=== PATIENT | female | born 2000 | race Caucasian/White ===

== ENCOUNTER 2019-08-16 22:33 | Inpatient (IN) ==
[2019-08-16] MEDS ORDERED: SODIUM CHLORIDE 0.9% 1000ML 1,000 ML IV ONE (23:01)
[2019-08-16] MEDS: SODIUM CHLORIDE 0.9% 1000ML 1,000 ML IV ONE ×2 (23:03→23:29)
[2019-08-16] MEDS ORDERED: ACETAMINOPHEN 500 MG TAB PO STA (23:10)
[2019-08-16 23:15] LABS: Basophils # (auto) 0.05 K/uL (0-0.2); Basophils % (auto) 0.4 %; Eosinophils # (auto) 0.04 K/uL (0-0.5); Eosinophils % (auto) 0.4 %; Hematocrit (blood only) 39.6 % (37-47); Hemoglobin 13.3 g/dL (12.0-16.0); Immature Granulocytes # (auto) 0.01 K/uL (0.00-0.02); Immature Granulocytes % (auto) 0.1 %; Lymphocytes # (auto) 2.51 K/uL (1.2-3.4); Lymphocytes % (auto) 22.6 %; Mean Corpuscular Hemoglobin 27.3 pg (25-34); Mean Corpuscular Hgb Conc 33.6 g/dL (32-36); Mean Corpuscular Volume 81.1 fL (80-100); Mean Platelet Volume 9.6 fL (7.4-10.4); Monocytes # (auto) 0.69 K/uL (0.11-0.59); Monocytes % (auto) 6.2 %; Neutrophils # (auto) 7.82 K/uL (1.4-6.5); Neutrophils % (auto) 70.3 %; Platelet Count 460 K/uL (130-400); RDW Coefficient of Variation 13.7 % (11.5-14.5); RDW Standard Deviation 40.6 fL (36.4-46.3); Red Blood Count 4.88 M/uL (4.2-5.4); White Blood Count 11.12 K/uL (4.8-10.8)
[2019-08-16 23:40] LABS: Base Excess VBG -4.3 mEq/L; HCO3 VBG 20 mmol/L; Oxygen Saturation VBG 77.6 %; PCO2 VBG 34 mmHg (38-50); PO2 VBG 44 mmHg; Potassium 4.6 mmol/L (3.5-5.1); pH VBG 7.38 (7.36-7.41)
[2019-08-16 23:49] LABS: Alanine Aminotransferase 26 U/L (12-78); Albumin Globulin Ratio 0.9 (0.9-2); Albumin Level 3.7 gm/dl (3.4-5.0); Alkaline Phosphatase 195 U/L (45-117); Aspartate Aminotransferase 13 U/L (15-37); BUN Creatinine Ratio 14.4 (10-20); Bilirubin,Total 0.5 mg/dl (0.2-1); Blood Urea Nitrogen 18 mg/dl (7-18); Calcium 9.6 mg/dl (8.5-10.1); Carbon Dioxide 20 mmol/L (21-32); Chloride 96 mmol/L (98-107); Creatinine Clr Calc Pharmacy 83.7 ml/min; Est GFR (African American) 73.9; Est GFR (Non-African American) 63.7; Globulin 4.1 gm/dl (2.5-4.0); Glucose 704 mg/dl (70-99); Magnesium 2.1 mg/dl (1.8-2.4); Phosphorus 3.6 mg/dl (2.5-4.9); Sodium 130 mmol/L (136-145); Total Protein 7.8 gm/dl (6.4-8.2)
[2019-08-17] MEDS ORDERED: CARBOHYDRATES FOR HYPOGLYCEMIA PO PRN (00:01)
[2019-08-17] MEDS ORDERED: DEXTROSE 50% 50 ML SYRINGE IV PRN (00:01)
[2019-08-17] MEDS ORDERED: GLUCAGON FOR INJ 1 MG VIAL SQ PRN (00:01)
[2019-08-17] MEDS ORDERED: GLUCOSE 40% GEL 15 GM TUBE PO PRN (00:01)
[2019-08-17] MEDS ORDERED: GLUCOSE 10 TABS/TUBE PO PRN (00:01)
[2019-08-17] MEDS ORDERED: ED DKA INSULIN DRIP ONE (00:01)
[2019-08-17 00:06] LABS: Pregnancy Test, Serum Negative (Negative)
--- NOTE | 2019-08-17 00:11 | Emergency Department Note ---
Entered by Miranda Diop acting as a scribe for History of Present Illness General Chief complaint: Hyperglycemia Stated complaint: HIGH BLOOD SUGAR, TYPE 1 DIABETES Time Seen by Provider: 08/16/19 22:38 Source: patient History of Present Illness Onset (ago): hour(s) Pain Consistency: + constant Maximum Pain Intensity: 4 Current Pain Intensity: 4 Relieved By: + none Exacerbated By: + none Associated symptoms: + headaches, + nausea/vomiting, + shortness of breath and + other (fatigue and dehydration); no cough Treatments prior to arrival: other (Insulin) The patient is a 18 year old female who presents to the Emergency Room with complaints of hyperglycemia. The patient states that this afternoon, her blood sugar was reading high. She tried injecting additional insulin and changing the pump site, but nothing seemed to help. She complains of slight nausea and shortness of breath. She also complains of headache, fatigue, and dehydration. The patient denies cough, sore throat, and diarrhea. She states that her blood sugar was within normal limits this morning. She notes that she has only been in DKA once when she was diagnosed 20 years ago. Home Medications Home Medications Medication Instructions Recorded Confirmed Type Trulicity 0.75 mg SUBCUT WK 05/14/19 08/16/19 History insulin aspart U-100 [Novolog 0 unit CONTINUOUS SUBCUTANEOUS 05/14/19 08/16/19 History U-100 Insulin aspart] INFUSION CONT dulaglutide [Trulicity] 1.5 mg SUBCUT WK 08/16/19 08/16/19 History spironolactone 25 mg PO DAILY 08/16/19 08/16/19 History Allergies Allergy/AdvReac Type Severity Reaction Status Date / Time cephalexin Allergy Intermediate Hives Verified 08/16/19 23:25 penicillin V Allergy Mild Hives Verified 08/16/19 23:25 Past Med/Surg History Medical History Endometriosis Hidradenitis suppurativa Nausea and vomiting after administration of anesthetic agent Type 1 diabetes IDDM - novolog pump Surgical History History of appendectomy History of cholecystectomy History of laparoscopy lysis of adhesions History of right salpingo-oophorectomy Family History Grandfather (Paternal) FHx: kidney cancer Grandmother (Maternal) FHx: colon cancer Social History Preferred Language: Slovenian Communication Ability: Effective Adobe Architect Required: No Beliefs That Will Affect Care: None Current Living Situation Comment: room-mates Feels Safe at Home: Yes Smoking Status: Never smoker Second Hand Exposure: No ; Hx Alcohol Use: No Hx Substance Use: No Review of Systems See HPI for pertinent positives & negatives. and A total of 10 systems reviewed and were otherwise negative Physical Exam Vital Signs Vital Signs - 24 hr 08/16/19 22:34 08/16/19 23:26 08/16/19 23:32 Temperature 37.2 C Temperature Source Oral Pulse Rate 120 H 93 H Pulse Rate [Finger] 90 Pulse Rhythm Regular Pulse Rhythm [Finger] Regular Pulse Strength [Finger] Normal Respiratory Rate 22 19 20 Respiratory Effort / Characteristics Non-Labored Spontaneous Respiratory Depth Normal Respiratory Pattern Regular Blood Pressure 174/101 H Blood Pressure [Right Arm] 138/79 Blood Pressure Mean 125 Blood Pressure Mean [Right Arm] 98 Blood Pressure Position Sitting Blood Pressure Position [Right Arm] Lying Pulse Oximetry 100 98 98 Oxygen Delivery Method Room Air Room Air Room Air Sepsis Recent Fever Within 48 Hours No Sepsis Action Taken by Nursing No Action Required GENERAL: Awake, alert, fatigued-appearing. HENT: Dry mucus membranes. Normocephalic, atraumatic. EYES: Normal conjunctiva. Sclera non-icteric. NECK: Supple. No nuchal rigidity. RESPIRATORY: Tachypneic. Clear to auscultation. No wheezes. Normal respiratory effort. CARDIAC: Tachycardic rate. Normal rhythm. Extremities warm and well perfused. GI: Soft, non-distended. No tenderness to palpation. No rebound or guarding. No masses. R abdominal insulin pump in place. RECTAL: Deferred. MUSCULOSKELETAL: Atraumatic. Chest examination reveals no tenderness. LOWER EXTREMITIES: Calves are equal size bilaterally and non-tender. No edema NEURO: Normal sensorium. No sensory or motor deficits noted. No facial droop. SKIN: Warm and dry. No rash or jaundice noted. Course Course 2039: Past medical records reviewed. The patient was evaluated in room B02. A complete history and physical exam was performed. 0010: I updated the patient on lab results and discussed staying in the hospital for further treatment. The patient understands and is agreeable to this plan. 0014: I spoke to Dr. Seaman, [facility] hospitalist, who agreed to take over care of the patient. The patient is agreeable and will be evaluated for further treatment. Administered Medications Discontinued Medications Acetaminophen (Tylenol) 1,000 mg PO NOW STA Stop: 08/16/19 23:11 Last Admin: 08/16/19 23:23 Dose: 1,000 mg Documented by: [id number] Sodium Chloride (Nss 1000ml) 1,000 mls @ 999 mls/hr IV .Q1H1M ONE Stop: 08/16/19 23:38 Last Admin: 08/16/19 23:29 Dose: 999 mls/hr Documented by: [id number] Infusion: 08/16/19 23:29 Dose: 999 mls/hr Documented by: [id number] Admin: 08/16/19 23:03 Dose: 999 mls/hr Documented by: [id number] Sodium Chloride (Nss 1000ml) 1,000 mls @ 999 mls/hr IV .Q1H1M ONE Stop: 08/17/19 00:01 Last Admin: 08/16/19 23:31 Dose: 999 mls/hr Documented by: [id number] Critical Care Time Critical Care Time: Yes Total Critical Care Time: 38 I have personally spent 38 minutes of critical care time in the direct management of this patient. This includes bedside care, interpretation of diagnostic studies, and testing, discussion with consultants, patient, and family members, and other required patient management activities. This 38 minutes is in excess of all separately billable procedures. Medical Decision Making Differential Diagnosis Differential includes acute DKA, coronary syndrome, myocardial infarction, CVA, TIA, anemia, infection, pneumonia, UTI, pyelonephritis, poor nutrition, dehydration, electrolyte disturbance,hypoglycemia, as well as others were considered. Medical Records Attestation: I reviewed the patient's medical records. Home Medications Current Medication List: was personally reviewed by me Laboratory Data Attestation: I reviewed the patient's lab results. Result diagrams: 08/16/19 23:00 08/16/19 23:00 Lab Results 08/16/19 08/16/19 08/16/19 Range/Units 22:42 22:43 23:00 WBC (4.8-10.8) K/uL RBC (4.2-5.4) M/uL Hgb (12.0-16.0) g/dL Hct (37-47) % MCV (80-100) fL MCH (25-34) pg MCHC (32-36) g/dL RDW Std Deviation (36.4-46.3) fL RDW Coeff of Ricki (11.5-14.5) % Plt Count (130-400) K/uL MPV (7.4-10.4) fL Immature Gran % (Auto) % Neut % (Auto) % Lymph % (Auto) % [place] % (Auto) % Eos % (Auto) % Baso % (Auto) % Immature Gran # (Auto) (0.00-0.02) K/uL Neut # (Auto) (1.4-6.5) K/uL Lymph # (Auto) (1.2-3.4) K/uL [place] # (Auto) (0.11-0.59) K/uL Eos # (Auto) (0-0.5) K/uL Baso # (Auto) (0-0.2) K/uL VBG pH (7.36-7.41) VBG pCO2 (38-50) mmHg VBG pO2 mmHg VBG HCO3 mmol/L VBG O2 Saturation % VBG Base Excess mEq/L Sodium 130 L (136-145) mmol/L Potassium 4.6 (3.5-5.1) mmol/L Chloride 96 L (98-107) mmol/L Carbon Dioxide 20 L (21-32) mmol/L Anion Gap 14.0 H (3-11) BUN 18 (7-18) mg/dl Creatinine 1.22 H (0.6-1.2) mg/dl Est Cr Clr Drug Dosing 83.7 ml/min Est GFR ( Amer) 73.9 Est GFR (Non-Af Amer) 63.7 BUN/Creatinine Ratio 14.4 (10-20) Glucose 704 H* (70-99) mg/dl POC Glucose > 600 H* > 600 H* (70-99) mg/dl Lactate (0.4-2.0) mmol/L Calcium 9.6 (8.5-10.1) mg/dl Phosphorus 3.6 (2.5-4.9) mg/dl Magnesium 2.1 (1.8-2.4) mg/dl Total Bilirubin 0.5 (0.2-1) mg/dl AST 13 L (15-37) U/L ALT 26 (12-78) U/L Alkaline Phosphatase 195 H (45-117) U/L Total Protein 7.8 (6.4-8.2) gm/dl Albumin 3.7 (3.4-5.0) gm/dl Globulin 4.1 H (2.5-4.0) gm/dl Albumin/Globulin Ratio 0.9 (0.9-2) Beta-Hydroxybutyric Acd 40.49 H (0.2-2.81) mg/dl HCG, Qual (Negative) 08/16/19 08/16/19 08/16/19 Range/Units 23:00 23:00 23:00 WBC 11.12 H (4.8-10.8) K/uL RBC 4.88 (4.2-5.4) M/uL Hgb 13.3 (12.0-16.0) g/dL Hct 39.6 (37-47) % MCV 81.1 (80-100) fL MCH 27.3 (25-34) pg MCHC 33.6 (32-36) g/dL RDW Std Deviation 40.6 (36.4-46.3) fL RDW Coeff of Ricki 13.7 (11.5-14.5) % Plt Count 460 H (130-400) K/uL MPV 9.6 (7.4-10.4) fL Immature Gran % (Auto) 0.1 % Neut % (Auto) 70.3 % Lymph % (Auto) 22.6 % [place] % (Auto) 6.2 % Eos % (Auto) 0.4 % Baso % (Auto) 0.4 % Immature Gran # (Auto) 0.01 (0.00-0.02) K/uL Neut # (Auto) 7.82 H (1.4-6.5) K/uL Lymph # (Auto) 2.51 (1.2-3.4) K/uL [place] # (Auto) 0.69 H (0.11-0.59) K/uL Eos # (Auto) 0.04 (0-0.5) K/uL Baso # (Auto) 0.05 (0-0.2) K/uL VBG pH 7.38 (7.36-7.41) VBG pCO2 34 L (38-50) mmHg VBG pO2 44 mmHg VBG HCO3 20 mmol/L VBG O2 Saturation 77.6 % VBG Base Excess -4.3 mEq/L Sodium (136-145) mmol/L Potassium (3.5-5.1) mmol/L Chloride (98-107) mmol/L Carbon Dioxide (21-32) mmol/L Anion Gap (3-11) BUN (7-18) mg/dl Creatinine (0.6-1.2) mg/dl Est Cr Clr Drug Dosing ml/min Est GFR ( Amer) Est GFR (Non-Af Amer) BUN/Creatinine Ratio (10-20) Glucose (70-99) mg/dl POC Glucose (70-99) mg/dl Lactate 1.6 (0.4-2.0) mmol/L Calcium (8.5-10.1) mg/dl Phosphorus (2.5-4.9) mg/dl Magnesium (1.8-2.4) mg/dl Total Bilirubin (0.2-1) mg/dl AST (15-37) U/L ALT (12-78) U/L Alkaline Phosphatase (45-117) U/L Total Protein (6.4-8.2) gm/dl Albumin (3.4-5.0) gm/dl Globulin (2.5-4.0) gm/dl Albumin/Globulin Ratio (0.9-2) Beta-Hydroxybutyric Acd (0.2-2.81) mg/dl HCG, Qual (Negative) 08/16/19 08/16/19 Range/Units 23:00 23:55 WBC (4.8-10.8) K/uL RBC (4.2-5.4) M/uL Hgb (12.0-16.0) g/dL Hct (37-47) % MCV (80-100) fL MCH (25-34) pg MCHC (32-36) g/dL RDW Std Deviation (36.4-46.3) fL RDW Coeff of Ricki (11.5-14.5) % Plt Count (130-400) K/uL MPV (7.4-10.4) fL Immature Gran % (Auto) % Neut % (Auto) % Lymph % (Auto) % [place] % (Auto) % Eos % (Auto) % Baso % (Auto) % Immature Gran # (Auto) (0.00-0.02) K/uL Neut # (Auto) (1.4-6.5) K/uL Lymph # (Auto) (1.2-3.4) K/uL [place] # (Auto) (0.11-0.59) K/uL Eos # (Auto) (0-0.5) K/uL Baso # (Auto) (0-0.2) K/uL VBG pH (7.36-7.41) VBG pCO2 (38-50) mmHg VBG pO2 mmHg VBG HCO3 mmol/L VBG O2 Saturation % VBG Base Excess mEq/L Sodium (136-145) mmol/L Potassium (3.5-5.1) mmol/L Chloride (98-107) mmol/L Carbon Dioxide (21-32) mmol/L Anion Gap (3-11) BUN (7-18) mg/dl Creatinine (0.6-1.2) mg/dl Est Cr Clr Drug Dosing ml/min Est GFR ( Amer) Est GFR (Non-Af Amer) BUN/Creatinine Ratio (10-20) Glucose (70-99) mg/dl POC Glucose 534 H* (70-99) mg/dl Lactate (0.4-2.0) mmol/L Calcium (8.5-10.1) mg/dl Phosphorus (2.5-4.9) mg/dl Magnesium (1.8-2.4) mg/dl Total Bilirubin (0.2-1) mg/dl AST (15-37) U/L ALT (12-78) U/L Alkaline Phosphatase (45-117) U/L Total Protein (6.4-8.2) gm/dl Albumin (3.4-5.0) gm/dl Globulin (2.5-4.0) gm/dl Albumin/Globulin Ratio (0.9-2) Beta-Hydroxybutyric Acd (0.2-2.81) mg/dl HCG, Qual Negative (Negative) ECG Data Attestation: I personally reviewed and interpreted this ECG as follows: Indication: + other (hyperglycemia) Rate (beats per minute): 77 Rhythm: + sinus with SA ECG Intervals/blocks: + Normal QT-c ECG [place]: + Normal ECG ST segments: no ST depression and no ST elevation ECG Findings: no PVCs Blood Pressure Blood Pressure Findings: Elevated blood pressure Blood Pressure Disposition: further management by hospitalist FLORENCE Narrative Continuous Cardiac Monitoring: An order was placed for continuous cardiac monitoring. The monitor shows a rate of 77 (70s) with sinus rhythm with sinus arrhythmia. Patient is a 18-year-old female with a history of type 1 diabetes presenting to the emergency department today with report of elevated blood sugar. Patient states he feels weak and tired low bit short of breath at this time with a headache. Patient states she is otherwise well until her blood sugar read high this evening/afternoon. Denies flulike symptoms. Denies urinary symptoms. Denies any numbness or tingling distally. States that she tried injecting additional insulin manually, using her insulin pump, changing his pump site without improvement. Patient's tachycardic and tachypneic here with significantly elevated blood sugar. Lactate and VBG ordered as well as basic labs. Fluid bolus initially ordered. High concern this represents DKA. Unsure the exact precipitating event. Doubt meningitis. Does not appear grossly septic. No respiratory symptoms and doubt pneumonia. Benign abdomen otherwise. Not really having gastroenteritis symptoms. Patient without significant acidosis on VBG. Bicarb very minimally depressed. Anion gap of 14 is elevated. Pseudohyponatremia. 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 Glucose is greater than 700. Insulin bolus and drip ordered for her uncontrolled hyperglycemia. She will suspend her own home insulin pump that she has been using basal at 2 units an hour (this has been running while here). Again received IV fluids for signs of dehydration. Patient is anti-initial stage of DKA with opening anion gap, hyperglycemia, dehydration and significant ketoacidosis in her urine at home. Hospitalist contacted. Impression & Plan DKA, type 1, Acute dehydration, Fatigue, Headache Discharge Plan Visit Data Chief Complaint: Hyperglycemia Stated Complaint: HIGH BLOOD SUGAR, TYPE 1 DIABETES ED Provider: Sandro Denton Discharge Problem: DKA, type 1, Acute dehydration, Fatigue, Headache Forms Stand Alone Forms: [employer] Prescriptions Prescriptions: No Action Trulicity 0.75 mg/0.5 mL Pen Injector 0.75 mg SUBCUT WK RF: 0 insulin aspart U-100 [Novolog U-100 Insulin aspart] 100 unit/mL Solution 0 unit continuous subcutaneous infusion CONT RF: 0 spironolactone 25 mg tablet 25 mg PO DAILY RF: 0 Trulicity 1.5 mg/0.5 mL pen injector 1.5 mg SUBCUT WK RF: 0 Discharge Problem: DKA, type 1 Qualifiers: Diabetes mellitus complication detail: without coma Qualified Code(s): E10.10 - Type 1 diabetes mellitus with ketoacidosis without coma Fatigue Qualifiers: Fatigue type: unspecified Qualified Code(s): R53.83 - Other fatigue Headache Qualifiers: Headache type: unspecified Headache chronicity pattern: acute headache Intractability: not intractable Qualified Code(s): R51 - Headache The scribe's documentation has been prepared under my direction and personally reviewed by me in its entirety. I confirm that the note above accurately reflects all work, treatment, procedures, and medical decision making performed by me.
[2019-08-17] MEDS ORDERED: NovoLIN-R BOLUS FROM BAG IV ONE (00:15)
[2019-08-17] MEDS ORDERED: INSULIN REGULAR 250 UNITS in SODIUM CHLORIDE 0.9% 247.5 ML IV SCH (00:15)
[2019-08-17 00:16] LABS: Beta-Hydroxybutyrate 40.49 mg/dl (0.2-2.81)
[2019-08-17] MEDS ORDERED: SODIUM CHLORIDE 0.9% 1000ML 1,000 ML IV SCH (00:30)
[2019-08-17 00:45] LABS: Influenza A virus by PCR Neg for Influ A (Neg); Influenza B virus by PCR Neg for Influ B (Neg)
[2019-08-17 00:58] LABS: Appearance Urine Clear (Clear); Bilirubin Urine Negative (Negative); Blood Urine Negative (Negative); Color Urine Yellow; Glucose Urine UA 3+ (Negative); Ketones Urine 2+ (Negative); Leukocyte Esterase Urine Negative (Negative); Nitrite Urine Negative (Negative); Protein Urine Negative (Negative); Specific Gravity Urine 1.023 (1.000-1.030); Urobilinogen Urine Negative (Negative)
[2019-08-17 01:21] LABS: Troponin I < 0.015 ng/ml (0-0.045)
--- NOTE | 2019-08-17 01:29 | History & Physical Report ---
Date of Service August 17, 2019 Assessment & Plan (1) Hyperglycemic crisis in diabetes mellitus: DM1 (recent outpatient hemoglobin A1c of 8.04 June 2019) Unclear precipitant ? Pump malfunction ARF, AGMA secondary to above Situational hypertension mood disorder, at baseline hiradenitis suppurativa status post surgery, stable disease Patient was to start spironolactone prescription to suppress disease. Medical telemetry given blood pressure elevation TTE if with persistent elevation rule out chronic hypertension, may benefit from maintenance Rx IV insulin Pharmacy glycemic control consult Update hemoglobin A1c Monitor creatinine response to IVF DVT prophylaxis. Lovenox subcu Full code Text document was generated using [employer] voice recognition software. It may contain grammatical or spelling errors. Kindly contact undersigned for clarification of any documentation item in question. History of Present Illness Chief Complaint: High sugars Primary Care Provider: Sona Gillespie MD History obtained from patient and records. Medical history significant for DM1 on insulin pump, mood disorder, hiradenitis suppurativa, ovarian cystadenoma status post surgery. Patient diagnosed to have DM1 at age 20 years old. Only confinement for DKA was at time of diagnosis at [facility]. Home insulin pump initiated last year. Usual BSGs 1 50-2 50s. No recent hypoglycemic episodes as per patient. Yesterday afternoon, blood glucose monitor was not reading sugars. Suspecting severe hypoglycemia, patient tried injecting additional insulin and changing pump site to no avail. No recent change in regimen. Denies dietary indiscretion. No cough, abdominal pain, diarrhea, dysuria symptoms. Patient later noted some nausea, mild achy headache, S OB symptoms. No chest pain. Peeing a lot. At the ER, initial BSG noted to be 700s. IV insulin started at the ER after patient's insulin pump was turned off. 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 Allergies Allergy/AdvReac Type Severity Reaction Status Date / Time cephalexin Allergy Intermediate Hives Verified 08/16/19 23:25 penicillin V Allergy Mild Hives Verified 02/16/20 23:25 Home Medications Home Medications Medication Instructions Recorded Confirmed Type Trulicity 0.75 mg SUBCUT WK 05/14/19 08/16/19 History insulin aspart U-100 [Novolog 0 unit CONTINUOUS SUBCUTANEOUS 05/14/19 08/16/19 History U-100 Insulin aspart] INFUSION CONT dulaglutide [Trulicity] 1.5 mg SUBCUT WK 08/16/19 08/16/19 History spironolactone 25 mg PO DAILY 08/16/19 08/16/19 History Past Med/Surg History Medical History Endometriosis Hidradenitis suppurativa Nausea and vomiting after administration of anesthetic agent Type 1 diabetes IDDM - novolog pump Surgical History History of appendectomy History of cholecystectomy History of laparoscopy lysis of adhesions History of right salpingo-oophorectomy Family History Grandfather (Paternal) FHx: kidney cancer Grandmother (Maternal) FHx: colon cancer Social History Preferred Language: Nepali Communication Ability: Effective Director Safety Council Required: No Beliefs That Will Affect Care: None Current Living Situation: Other Current Living Situation Comment: dormitory Other Information That Helps Us Care for You: No Feels Safe at Home: Yes Smoking Status: Never smoker Second Hand Exposure: No ; Hx Alcohol Use: No Hx Substance Use: No Review of Systems Review of Systems: As per HPI, all 10 systems reviewed, all other ROS negative Physical Exam Physical Exam: GENERAL: Comfortable, pleasant, morbidly obese, no respiratory distress SKIN: Normal color, warm HEENT: Bespectacled, pink palpebral conjunctivae, no ptosis, dry buccal mucosa NECK : Supple, short neck, no tenderness CHEST : CTA, no tenderness HEART : RRR, no obvious murmurs ABDOMEN: Some distention, nontender EXTREMITIES : Minimal LE swelling, no LE tenderness, no other conspicuous deformities noted NEUROLOGIC : Coherent, no facial asymmetry, no other gross focality Results & Data Vital Signs (Past 12 Hours) Vital Signs Temp Pulse Pulse Resp BP BP Pulse Ox 08/17/19 01:06 99 H 20 149/72 H 99 08/16/19 23:32 93 H 20 98 08/16/19 23:26 90 19 138/79 98 08/16/19 22:34 37.2 C 120 H 22 174/101 H 100 Laboratory Results Laboratory Results WBC 11.12 K/uL (4.8-10.8) H 08/16/19 23:00 RBC 4.88 M/uL (4.2-5.4) 08/16/19 23:00 Hgb 13.3 g/dL (12.0-16.0) 08/16/19 23:00 Hct 39.6 % (37-47) 08/16/19 23:00 MCV 81.1 fL (80-100) 08/16/19 23:00 MCH 27.3 pg (25-34) 08/16/19 23:00 MCHC 33.6 g/dL (32-36) 08/16/19 23:00 RDW Std Deviation 40.6 fL (36.4-46.3) 08/16/19 23:00 RDW Coeff of Ricki 13.7 % (11.5-14.5) 08/16/19 23:00 Plt Count 460 K/uL (130-400) H 08/16/19 23:00 MPV 9.6 fL (7.4-10.4) 08/16/19 23:00 Immature Gran % (Auto) 0.1 % 08/16/19 23:00 Neut % (Auto) 70.3 % 08/16/19 23:00 Lymph % (Auto) 22.6 % 08/16/19 23:00 [place] % (Auto) 6.2 % 08/16/19 23:00 Eos % (Auto) 0.4 % 08/16/19 23:00 Baso % (Auto) 0.4 % 08/16/19 23:00 Immature Gran # (Auto) 0.01 K/uL (0.00-0.02) 08/16/19 23:00 Neut # (Auto) 7.82 K/uL (1.4-6.5) H 08/16/19 23:00 Lymph # (Auto) 2.51 K/uL (1.2-3.4) 08/16/19 23:00 [place] # (Auto) 0.69 K/uL (0.11-0.59) H 08/16/19 23:00 Eos # (Auto) 0.04 K/uL (0-0.5) 08/16/19 23:00 Baso # (Auto) 0.05 K/uL (0-0.2) 08/16/19 23:00 VBG pH 7.38 (7.36-7.41) 08/16/19 23:00 VBG pCO2 34 mmHg (38-50) L 08/16/19 23:00 VBG pO2 44 mmHg 08/16/19 23:00 VBG HCO3 20 mmol/L 08/16/19 23:00 VBG O2 Saturation 77.6 % 08/16/19 23:00 VBG Base Excess -4.3 mEq/L 08/16/19 23:00 Sodium 130 mmol/L (136-145) L 08/16/19 23:00 Potassium 4.6 mmol/L (3.5-5.1) 08/16/19 23:00 Chloride 96 mmol/L (98-107) L 08/16/19 23:00 Carbon Dioxide 20 mmol/L (21-32) L 08/16/19 23:00 Anion Gap 14.0 (3-11) H 08/16/19 23:00 BUN 18 mg/dl (7-18) 08/16/19 23:00 Creatinine 1.22 mg/dl (0.6-1.2) H 08/16/19 23:00 Est Cr Clr Drug Dosing 83.7 ml/min 08/16/19 23:00 Est GFR ( Amer) 73.9 08/16/19 23:00 Est GFR (Non-Af Amer) 63.7 08/16/19 23:00 BUN/Creatinine Ratio 14.4 (10-20) 08/16/19 23:00 Glucose 704 mg/dl (70-99) H* 08/16/19 23:00 POC Glucose 466 mg/dl (70-99) H* 08/17/19 00:59 Lactate 1.6 mmol/L (0.4-2.0) 08/16/19 23:00 Calcium 9.6 mg/dl (8.5-10.1) 08/16/19 23:00 Phosphorus 3.6 mg/dl (2.5-4.9) 02/16/20 23:00 Magnesium 2.1 mg/dl (1.8-2.4) 08/16/19 23:00 Total Bilirubin 0.5 mg/dl (0.2-1) 08/16/19 23:00 AST 13 U/L (15-37) L 08/16/19 23:00 ALT 26 U/L (12-78) 08/16/19 23:00 Alkaline Phosphatase 195 U/L (45-117) H 08/16/19 23:00 Troponin I < 0.015 ng/ml (0-0.045) 08/16/19 23:00 Total Protein 7.8 gm/dl (6.4-8.2) 08/16/19 23:00 Albumin 3.7 gm/dl (3.4-5.0) 08/16/19 23:00 Globulin 4.1 gm/dl (2.5-4.0) H 08/16/19 23:00 Albumin/Globulin Ratio 0.9 (0.9-2) 08/16/19 23:00 Beta-Hydroxybutyric Acd 40.49 mg/dl (0.2-2.81) H 08/16/19 23:00 Procalcitonin 0.09 ng/ml (0-0.5) 08/16/19 23:00 HCG, Qual Negative (Negative) 08/16/19 23:00 Urine Color Yellow 08/17/19 00:30 Urine Appearance Clear (Clear) 08/17/19 00:30 Urine pH 5.0 (4.5-7.5) 08/17/19 00:30 Ur Specific [place] 1.023 (1.000-1.030) 08/17/19 00:30 Urine Protein Negative (Negative) 08/17/19 00:30 Urine Glucose (UA) 3+ (Negative) H 08/17/19 00:30 Urine Ketones 2+ (Negative) H 08/17/19 00:30 Urine Blood Negative (Negative) 08/17/19 00:30 Urine Nitrite Negative (Negative) 08/17/19 00:30 Urine Bilirubin Negative (Negative) 08/17/19 00:30 Urine Urobilinogen Negative (Negative) 08/17/19 00:30 Ur Leukocyte Esterase Negative (Negative) 08/17/19 00:30 Influenza Type A (PCR) Neg for Influ A (Neg) 08/16/19 23:53 Influenza Type B (PCR) Neg for Influ B (Neg) 08/16/19 23:53 Diagnostic Findings Chest x-ray as per my interpretation no infiltrate, no congestion EKG as per my interpretation : Rate 80, NSR, normal axis, T wave abnormality septal leads
[2019-08-17] MEDS ORDERED: PHARMACY GLYCEMIC MGMT CONSULT STA (01:34)
[2019-08-17 01:45] LABS: D Dimer 210 ug/L FEU (0-500); Partial Thromboplastin Ratio 0.9; Partial Thromboplastin Time 24.6 Seconds (21.0-31.0)
[2019-08-17] MEDS ORDERED: PHARMACY GLYCEMIC MGMT CONSULT PRN (01:46)
[2019-08-17] MEDS ORDERED: ACETAMINOPHEN 325 MG TAB PO PRN (02:40)
[2019-08-17] MEDS ORDERED: PROMETHAZINE HCL 12.5 MG in SODIUM CHLORIDE 0.9% 50 ML IV PRN (02:40)
[2019-08-17] MEDS ORDERED: TRAMADOL HCL 50 MG TABLET PO PRN (02:40)
[2019-08-17 03:17] LABS: Basophils # (auto) 0.06 K/uL (0-0.2); Basophils % (auto) 0.6 %; Eosinophils # (auto) 0.05 K/uL (0-0.5); Eosinophils % (auto) 0.5 %; Hematocrit (blood only) 38.4 % (37-47); Hemoglobin 12.9 g/dL (12.0-16.0); Immature Granulocytes # (auto) 0.03 K/uL (0.00-0.02); Immature Granulocytes % (auto) 0.3 %; Lymphocytes % (auto) 32.4 %; Mean Corpuscular Hemoglobin 26.9 pg (25-34); Mean Corpuscular Hgb Conc 33.6 g/dL (32-36); Mean Platelet Volume 9.3 fL (7.4-10.4); Monocytes # (auto) 0.71 K/uL (0.11-0.59); Monocytes % (auto) 7.2 %; Neutrophils # (auto) 5.82 K/uL (1.4-6.5); Platelet Count 437 K/uL (130-400); RDW Coefficient of Variation 13.5 % (11.5-14.5); White Blood Count 9.87 K/uL (4.8-10.8)
[2019-08-17 03:39] LABS: BUN Creatinine Ratio 21.6 (10-20); Calcium 9.5 mg/dl (8.5-10.1); Creatinine Clr Calc Pharmacy 113.6 ml/min; Est GFR (African American) 106.7; Potassium 3.9 mmol/L (3.5-5.1)
[2019-08-17] MEDS ORDERED: LACTATED RINGER'S 1,000 ML IV ONE (03:56)
[2019-08-17 05:55] LABS: Estimated Average Glucose 212 mg/dl
--- NOTE | 2019-08-17 07:19 | XRay Report ---
XR chest 1V portable HISTORY: Shortness of breath. COMPARISON: None. FINDINGS: The lungs are clear. Cardiac silhouette is normal in size. No pleural effusions. No pneumot horax. IMPRESSION: No acute process. ACT 112: Negative or not required by law. Electronically signed by: Alexi Nichols M.D. 08/17/2019 7:17 AM
[2019-08-17] MEDS ORDERED: INSULIN ASPART 100 UNITS/ML 3 ML PEN SC SCH (07:30)
[2019-08-17] MEDS ORDERED: ENOXAPARIN INJ 40 MG/0.4 ML SYR SQ SCH (09:00)
[2019-08-17] MEDS ORDERED: INSULIN ASPART 100 UNITS/ML VIAL SC PRN (10:45)
[2019-08-17] MEDS: NovoLOG INSULIN PUMP SCH ×3 (11:04→17:05)
--- NOTE | 2019-08-17 15:04 | Pharmacy Report ---
Pharmacy Glycemic Short Note 2 - Date of Service August 17, 2019 - Glycemic Short BSG Results (Last 24 hours): 08/16/19 08/16/19 08/16/19 22:42 22:43 23:00 Glucose 704 H* POC Glucose > 600 H* > 600 H* 08/16/19 08/17/19 08/17/19 23:55 00:59 01:38 Glucose POC Glucose 534 H* 466 H* 376 H* 08/17/19 08/17/19 08/17/19 02:20 02:48 03:08 Glucose 289 H POC Glucose 331 H* 303 H* 08/17/19 08/17/19 08/17/19 03:53 04:54 05:30 Glucose POC Glucose 236 H 161 H 140 H 08/17/19 08/17/19 08/17/19 06:01 07:09 08:02 Glucose POC Glucose 155 H 125 H 118 H 08/17/19 08/17/19 08/17/19 08:35 09:30 10:33 Glucose POC Glucose 177 H 189 H 137 H OUTPATIENT ANTIDIABETIC REGIMEN: * Novolog insulin pump * Basal: 2 units/hr * Carb ratio: 1 unit per 5gm CHO consumed * Correction factor: 1 unit per 25mg/dL above 130 * Trulicity * HbA1c: 9.0% (08/16/19) ASSESSMENT: * Ms Schaffer is a Type 1 diabetic female who presented to the hospital with hyperglycemia that she was unable to control with her pump at home. * Suspect that there was a pump malfunction. * Patient was corrected with an IV insulin infusion overnight and was transitio amanda back to her insulin pump before lunch today. * The pt moved insulin pump to a new site prior to admission. * BSGs appear to be reasonable since resuming her pump. Nursing will continue to monitor. PLAN FOR INPATIENT GLYCEMIC CONTROL: * Resume insulin pump at previous outpt settings. PLAN FOR DISCHARGE: * Suspect that patient may continue current regimen on discharge. * A1c is not at goal, so would recommend close f/u with outpt providers to work toward optimizing A1c.
--- NOTE | 2019-08-17 17:49 | Hospitalist Progress Note ---
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 DVT prophylaxis On Lovenox subcu CODE STATUS Full code Admission and Anticipated Discharge Date Admission Date: August 17, 2019 Subjective Pt was seen and examined. Lying in bed with no distress. Pt said that she feels fine She said that it seems like her insulin pump was not working properly She said that her sugar was control between 80 to 140 in the past few days, then suddenly her meter was unable to read the BS Pt denies any chest pain, palpitation, dizziness and SOB Physical Exam Physical Exam: General- No acute distress Head- atraumatic Eyes- PERRL, EOMI, ENT- oropharynx clear Neck- supple, no JVD Lungs- clear to auscultation Heart- regular rhythm; no murmur Abdomen- normal bowel sounds, soft, nontender Extremities- no calf tenderness Neuro- alert, oriented x 3; PERRL, EOMI; no facial palsy; no dysarthria Skin- warm & dry Results & Data ([facility]) Vital Signs (Past 12 Hours) Vital Signs Temp Pulse Pulse Pulse Resp BP Pulse Ox 08/17/19 16:47 36.6 C 77 18 97/62 L 97 08/17/19 14:59 99 H 08/17/19 12:00 36.6 C 77 18 97/62 L 97 08/17/19 08:00 36.7 C 84 76 18 113/73 98
--- NOTE | 2019-08-17 22:49 | Electrocardiogram Report ---
Test Reason : Blood Pressure : / mmHG Vent. Rate : 077 BPM Atrial Rate : 077 BPM P-R Int : 154 ms QRS Dur : 076 ms QT Int : 362 ms P-R-T Axes : 035 036 009 degrees QTc Int : 409 ms Sinus rhythm with marked sinus arrhythmia Otherwise normal ECG No previous ECGs available Confirmed by Nestor Sy ([id number]) on 08/17/2019 10:50:02 PM Referred By: REFERRED SELF Confirmed By:Nestor Sy
--- NOTE | 2019-08-19 14:34 | Discharge Summary ---
Date of Service August 17, 2019 Admission HPI Per Admitting Provider History obtained from patient and records. Medical history significant for DM1 on insulin pump, mood disorder, hiradenitis suppurativa, ovarian cystadenoma status post surgery. Patient diagnosed to have DM1 at age 20 years old. Only confinement for DKA was at time of diagnosis at [facility]. Home insulin pump initiated last year. Usual BSGs 1 50-2 50s. No recent hypoglycemic episodes as per patient. Yesterday afternoon, blood glucose monitor was not reading sugars. Suspecting severe hypoglycemia, patient tried injecting additional insulin and changing pump site to no avail. No recent change in regimen. Denies dietary indiscretion. No cough, abdominal pain, diarrhea, dysuria symptoms. Patient later noted some nausea, mild achy headache, S OB symptoms. No chest pain. Peeing a lot. At the ER, initial BSG noted to be 700s. IV insulin started at the ER after patient's insulin pump was turned off. 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 Admission Exam Per Admitting Provider GENERAL: Comfortable, pleasant, morbidly obese, no respiratory distress SKIN: Normal color, warm HEENT: Bespectacled, pink palpebral conjunctivae, no ptosis, dry buccal mucosa NECK : Supple, short neck, no tenderness CHEST : CTA, no tenderness HEART : RRR, no obvious murmurs ABDOMEN: Some distention, nontender EXTREMITIES : Minimal LE swelling, no LE tenderness, no other conspicuous deformities noted NEUROLOGIC : Coherent, no facial asymmetry, no other gross focality Principal Diagnosis Hyperglycemic crisis in diabetes mellitus: Mild DKA DM type 1 Elevated WBC Acute Kidney injury Discharge Exam General- No acute distress Head- atraumatic Eyes- PERRL, EOMI, ENT- oropharynx clear Neck- supple, no JVD Lungs- clear to auscultation Heart- regular rhythm; no murmur Abdomen- normal bowel sounds, soft, nontender Extremities- no calf tenderness Neuro- alert, oriented x 3; PERRL, EOMI; no facial palsy; no dysarthria Skin- warm & dry Discharge Data Allergies Allergy/AdvReac Type Severity Reaction Status Date / Time cephalexin Allergy Intermediate Hives Verified 08/16/19 23:25 penicillin V Allergy Mild Hives Verified 08/16/19 23:25 Consultations 08/17/19 00:15 ED Decision to Admit Stat Ordered Studies XR chest 1V portable HISTORY: Shortness of breath. COMPARISON: None. FINDINGS: The lungs are clear. Cardiac silhouette is normal in size. No pleural effusions. No pneumothorax. IMPRESSION: No acute process. ACT 112: Negative or not required by law. Electronically signed by: Alexi Nichols M.D. 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 DVT prophylaxis On Lovenox subcu CODE STATUS Full code Total Time Total Time Spent Total Time Spent (In Minutes): 35 minutes Total Time Includes: Examination of the Patient, Discharge Planning, Medication Reconciliation, Communication With Other Providers and Other Discharge Plan Discharge Items Patient Disposition: Home - Self-Care Reason For Visit: HYPERGLYCEMIC CRISIS,SOB Discharge Diagnosis: Hyperglycemic crisis in diabetes mellitus: Mild DKA DM type 1 Elevated WBC Acute Kidney injury Activity: Resume your previous activity Non-emergency contact: Primary Care Provider Call non-emergency contact if: you have any medication questions and your temperature is above 101 Follow-up/Referrals: Sona Delvalle MD [Primary Care Provider] - 08/20/19 1:45 pm Diet: Carb Count or DM1 Addtl Attending Provider Instructions: Follow up with your primary care provider within 1 week Continue monitor your blood sugar and bring your blood sugar log at your next appointment with your physician Follow up a healthy diabetes diet and limited concentrated sweet intake Continue exercise and weight loss Pending Studies at Discharge: No Stand-Alone Forms: My [facility], Smoking Cessation Medications and DC Order Prescriptions: Continued Trulicity 0.75 mg/0.5 mL Pen Injector 0.75 mg SUBCUT WK RF: 0 insulin aspart U-100 [Novolog U-100 Insulin aspart] 100 unit/mL Solution 0 unit continuous subcutaneous infusion CONT RF: 0 spironolactone 25 mg tablet 25 mg PO DAILY RF: 0 Trulicity 1.5 mg/0.5 mL pen injector 1.5 mg SUBCUT WK RF: 0 Discharge Orders: Discharge Order (Routine); Ordered 08/17/19 Ordered By: Rubén Bhandari Admission Data Admit Date/Time: 08/17/19 01:33 Attending Provider: Rubén Bhandari Admit Provider: Rasta Seaman Primary Care Provider: Sona Delvalle Other Interventions: Discharge Summary Assessment (RN) Last Done: 08/17/19 16:47 DC Date/Time DO NOT enter until pt leaves facility: 08/17/19 18:46
== END 2019-08-17 18:46 | disposition home or self-care (01) | DRG 919 ==
LOC: ED 22:33 → 2N 08-17 01:33